=== PATIENT | male | born 1985 ===

== ENCOUNTER 2017-01-05 19:02 | Inpatient (IN) | payer MEDICAID ==
[2017-01-05 20:36] LABS: BASO % 0.3 % (0.0-2.0); EOS # 0.1 K/uL (0.0-0.7); EOS % 1.5 % (0.0-4.0); HEMATOCRIT 40.8 % (35.0-51.0); LYMPH # 2.1 K/uL (1.0-4.3); LYMPH % 28.9 % (20.0-40.0); MEAN CELL VOLUME 86.4 fL (80.0-94.0); MEAN CORPUSCULAR HEMOGLOBIN 28.9 pg (27.0-31.0); MEAN CORPUSCULAR HGB CONC 33.5 g/dL (33.0-37.0); MEAN PLATELET VOLUME 9.3 fL (7.2-11.7); MONO # 0.5 K/uL (0.0-0.8); MONO % 7.4 % (0.0-10.0); RED CELL DISTRIBUTION WIDTH 14.4 % (11.5-14.5); WHITE BLOOD COUNT 7.2 K/uL (4.8-10.8)
[2017-01-05 20:37] LABS: URINE BILIRUBIN NEGATIVE (NEGATIVE); URINE BLOOD NEGATIVE (NEGATIVE); URINE COLOR Yellow (YELLOW); URINE GLUCOSE (UA) NORMAL (Normal); URINE KETONE NEGATIVE (NEGATIVE); URINE LEUKOCYTE ESTERASE NEG Leu/uL (Negative); URINE PROTEIN NEGATIVE (NEGATIVE); WBC URINE 1 /hpf (0-5)
[2017-01-05 20:40] LABS: CHLORIDE 95 mmol/L (98-107)
[2017-01-05 20:41] LABS: POTASSIUM 3.5 mmol/L (3.6-5.2); SODIUM 139 mmol/L (132-148)
[2017-01-05 20:43] LABS: ALB/GLOB RATIO 1.3 (1.0-2.1); ALKALINE PHOSPHATASE 58 U/L (38-126); ALT/SGPT 54 U/L (21-72); AST/SGOT 33 U/L (17-59); BILIRUBIN,TOTAL 0.3 mg/dL (0.2-1.3); BLOOD UREA NITROGEN 8 mg/dL (9-20); CARBON DIOXIDE 28 mmol/L (22-30); GFR AFRICAN-AMERICAN > 60; TOTAL PROTEIN 7.6 g/dL (6.3-8.3)
[2017-01-05 20:44] LABS: ALCOHOL SERUM < 10 mg/dl (0-10); CALCIUM 8.6 mg/dl (8.6-10.4); GLUCOSE,RANDOM 83 mg/dL (75-110)
--- NOTE | 2017-01-05 21:06 | C.PDOC ---
Time Seen by Provider: 01/05/17 20:05 Chief Complaint (Nursing): Psychiatric Evaluation History Per: Patient History/Exam Limitations: clinical condition Onset/Duration Of Symptoms: Days Current Symptoms Are (Timing): Still Present Suicide/Self Injury Attempted (Context): None Severity: Moderate Associated Symptoms: Other (Auditory hallucinations) Additional History Per: Prior Records Past Medical History Reviewed: Historical Data, Nursing Documentation, Vital Signs Vital Signs: Last Vital Signs Temp 98.3 F 01/05/17 19:19 Pulse 82 01/05/17 19:19 Resp 20 01/05/17 19:19 BP 110/75 01/05/17 19:19 Pulse Ox 97 01/05/17 21:06 - Medical History PMH: HIV, Schizophrenia Surgical History: No Surg Hx Family History: States: Unknown Family Hx - Social History Hx Tobacco Use: Yes Hx Alcohol Use: Yes Hx Substance Use: No - Immunization History Hx Tetanus Toxoid Vaccination: No Hx Influenza Vaccination: No Review Of Systems Except As Marked, All Systems Reviewed And Found Negative. Constitutional: Negative for: Fever Cardiovascular: Negative for: Chest Pain Respiratory: Negative for: Shortness of Breath Gastrointestinal: Negative for: Vomiting, Abdominal Pain Musculoskeletal: Negative for: Neck Pain Neurological: Negative for: Weakness, Numbness, Seizures Psych: Positive for: Psychosis Physical Exam - Physical Exam Appears: Non-toxic, No Acute Distress Skin: Normal Color, Warm, Dry Head: Atraumatic Eye(s): bilateral: PERRL, EOMI Neck: Normal ROM, Supple Cardiovascular: Rhythm Regular Respiratory: Normal Breath Sounds, No Accessory Muscle Use Gastrointestinal/Abdominal: Soft, No Tenderness Back: No CVA Tenderness Extremity: Normal ROM, No Deformity Neurological/Psych: Oriented x3, Normal Motor, Normal Sensation ED Course And Treatment - Laboratory Results Result Diagrams: 01/05/17 20:28 01/05/17 20:28 Lab Interpretation: No Acute Changes O2 Sat by Pulse Oximetry: 97 Pulse Ox Interpretation: Normal Progress Note: Pt is medically stable for psychiatric evaluation and/or admission. Disposition Counseled Patient/Family Regarding: Studies Performed, Diagnosis, Smoking Cessation - Disposition Disposition: HOSPITALIZED Disposition Time: 22:04 Condition: STABLE - Clinical Impression Clinical Impression: Schizophrenia Decision To Admit - Pt Status Changed To: Hospital Disposition Of: Inpatient - Admit Certification Admit to Inpatient:: After my assessment, the patient will require hospitalization for at least two midnights. This is because of the severity of symptoms shown, intensity of services needed, and/or the medical risk in this patient being treated as an outpatient. - InPatient: Physician Admission Certification: I certify that this patient requires 2 or more midnights of care for the following reason:: Psych. - . Bed Request Type: Psychiatry Admitting Physician: Josué Patel Patient Diagnosis: Schizophrenia
[2017-01-05 22:52] VITALS: O2SAT 99
--- NOTE | 2017-01-06 11:16 | PCM.PSYCH ---
Initial Psychiatric Evaluation - Initial Psychiatric Evaluation Type of Admission: Voluntary Legal Status: Capacity History of Present Illness and Precipitating Events: Patient is 31 years old male, who is currently homeless and has a history of schizophrenia paranoid type continuous and alcohol and cannabis use disorder. Pt came to the ED because of auditory hallucinations and disorganized behavior. Patient remained disorganized and internally preoccupied throughout the interview. As per the patient he was just discharged from a hospital in [place] and he stopped taking all of his medications and relapsed on alcohol and marihuana. Pt states that yesterday he was not feeling good so thats why he came to the hospital to get help. As per the staff patient remained disorganized and internally preoccupied since yesterday. At times he started pacing back and forth in the hallways but remained partially mute. He reports depressed mood and reports auditory hallucinations telling him to kill himself. He reports VH seeing shadows. Patient appeared paranoid and delusional, and reports at times irritable and agitated mood. pt is not sure about his drinking , however UTOX is negative and pt is not experiencing nay withdrawal s/s. PMH: None reported Current Medications: Active Medications Generic Name Dose Route Start Last Admin Trade Name Freq PRN Reason Stop Dose Admin Acetaminophen 650 mg 01/06/17 11:14 Tylenol 325mg Tab PO Q6 PRN Fever >100.4 F Benztropine Mesylate 2 mg 01/06/17 11:14 Cogentin PO Q6 PRN Extra Pyramidal Symptoms Diphenhydramine HCl 50 mg 01/06/17 11:14 Benadryl PO Q6 PRN Extra Pyramidal Symptoms Haloperidol 5 mg 01/06/17 11:14 Haldol PO Q8 PRN Moderate Agitation Haloperidol Lactate 5 mg 01/06/17 11:14 Haldol IM Q8 PRN Moderate Agitation Hydroxyzine HCl 25 mg 01/06/17 00:42 Atarax PO Q6 PRN Anxiety Nicotine 1 patch 01/06/17 10:45 01/06/17 11:05 Nicoderm Cq TD 1 patch DAILY SANGEETHA Administration Trazodone HCl 50 mg 01/06/17 22:00 Desyrel PO HS SANGEETHA Past Psychiatric History - Past Psychiatric History Previous Treatment History: Inpatient Pertinent Medical Hx (Current Medical&Sleep Prob, Allergies): Allergies Allergy/AdvReac Type Severity Reaction Status Date / Time aspirin Allergy RASH Verified 01/05/17 19:34 No Known Home Med 11/20/15 Review of Systems - Review of Systems All systems: reviewed and no additional remarkable complaints except - Psychiatric Psychiatric: Anxiety, Auditory Hallucinations, Irritability, Paranoia, Suicidal Ideation Mental Status Examination - Personal Presentation Personal Presentation: Looks stated age - Affect Affect: Constricted - Motor Activity Motor Activity: Psychomotor Retardation - Reliability in Providing Information Reliability in Providing Information: Poor, due to alteration in thoughts, Poor , due to altered mood - Speech Speech: Disorganized - Mood Mood: Anxious - Formal Thought Process Formal Thought Process: Hallucinations, Delusions, Paranoia, Loosening of associations, Flight of ideas - Hallucinations/Delusions Hallucinations: Visual, Auditory Delusions: Persecution - Obsessions/Compulsions Obsessions: No Compulsions: No - Cognitive Functions Orientation: Person, Place, Situation, Time Sensorium: Alert Attention/Concentration: Attentive Abstract Thinking: [place] Estimate of Intelligence: Below average Judgement: Imparied, as evidence by: Poor judgement, Imparied, as evidence by: Lack of insight into illness - Risk Risk: Suicidal, Diminished functioning - Limitations Limitations: Living alone DSM 5 DX - DSM 5 DSM 5 Diagnosis: Schizophrenia paranoid type continuous Alcohol use disorder moderate Cannabis use disorder moderate - Recommended/Plan of Treatment Treatment Recommendations and Plan of Treatment: Schizophrenia paranoid type continuous CBT Psychoeducation Supportive therapy, group therapy, individual therapy Haldol 5 mg by mouth twice a day Depakote 250 mg by mouth 2 times a day Trazodone 50 mg by mouth daily at bedtime Alcohol use disorder moderate Ativan 1 mg po q6 hr prn Monitor signs and symptoms Use WI for abstinence Cannabis use disorder moderate Monitor signs and symptoms Use WI for abstinence - Smoking Cessation Smoking Cessation Initiated: No
[2017-01-06] MEDS: Divalproex 250 mg DR Tab PO SCH (17:43)
[2017-01-07] MEDS: Divalproex 250 mg DR Tab PO SCH ×2 (09:51→19:15)
[2017-01-08] MEDS: Divalproex 250 mg DR Tab PO SCH ×2 (10:31→17:44)
--- NOTE | 2017-01-09 01:02 | PCM.PYCHPN ---
Psychiatric Progress Note - Psychiatric Progress Note Patient seen today, length of contact: 16 MIN Patient Chief Complaint: I DON'T LIKE THE WAY I FEEL Problems Identified/Issues Discussed: RELAPSE PREVENTION MED AND TX ADHERENCE Medical Problems: NOTHING ACUTE Diagnostic Results: REVIEWED DSM 5 Symptoms Update: INTERNALLY PREOCCUPIED Medication Change: No Medical Record Reviewed: Yes Mental Status Examination - Cognitive Function Orientation: Place, Situation, Time Memory: Intact Attention: Poor Concentration: Poor Association: WNL Fund of Knowledge: WNL - Mood Mood: Anxious - Affect Affect: Constricted - Speech Speech: Appropriate - Formal Thought Process Formal Thought Process: Hallucinations, Delusions, Paranoia, Loosening of associations, Flight of ideas - Suicidal Ideation Suicidal Ideation: No - Homicidal Ideation Homicidal Ideation: No Goal/Treatment Plan - Goal/Treatment Plan Need for Continued Stay: Remain at risks for inpatient hospitalization, Discharge may exacerbated symptoms Progress Toward Problem(s) and Goals/Treatment Plan: SCHIZOPHRENIA ALCOHOL USE DISORDER ATIVAN PRN CBT MD CANNABIS USE DISORDER MD CBT JONI HOLLOWAY SUPPORTIVE PSYCHOTHERAPY GROUPS MD CBT Estimated Date of D/C: 01/14/17 - Smoking Cessation Smoking Cessation Initiated: No
--- NOTE | 2017-01-09 01:08 | PCM.PYCHPN ---
Psychiatric Progress Note - Psychiatric Progress Note Patient seen today, length of contact: 16 MIN Patient Chief Complaint: I DON'T LIKE THE WAY I FEEL IPT STATES HE FEELS HOPELESS, HELPLESS AND WORTHLESS Problems Identified/Issues Discussed: RELAPSE PREVENTION MED AND TX ADHERENCE PAWS Medical Problems: NOTHING ACUTE Diagnostic Results: REVIEWED Medication Change: No Medical Record Reviewed: Yes Mental Status Examination - Cognitive Function Orientation: Person, Place, Situation, Time Memory: Intact, Impaired Attention: Poor Concentration: Poor Association: WNL Fund of Knowledge: WNL - Mood Mood: Anxious - Affect Affect: Constricted - Speech Speech: Appropriate - Formal Thought Process Formal Thought Process: Hallucinations, Delusions, Paranoia, Loosening of associations, Flight of ideas - Suicidal Ideation Suicidal Ideation: No - Homicidal Ideation Homicidal Ideation: No Goal/Treatment Plan - Goal/Treatment Plan Need for Continued Stay: Remain at risks for inpatient hospitalization, Discharge may exacerbated symptoms Progress Toward Problem(s) and Goals/Treatment Plan: SCHIZOPHRENIA ALCOHOL USE DISORDER ATIVAN PRN CBT [place] CANNABIS USE DISORDER [place] CBT JONI HOLLOWAY SUPPORTIVE PSYCHOTHERAPY GROUPS [place] CBT Estimated Date of D/C: 01/14/17 - Smoking Cessation Smoking Cessation Initiated: No
[2017-01-09] MEDS: Divalproex 250 mg DR Tab PO SCH ×2 (10:35→17:28)
--- NOTE | 2017-01-09 15:41 | PCM.PYCHPN ---
Psychiatric Progress Note - Psychiatric Progress Note Patient seen today, length of contact: 16 MIN Patient Chief Complaint: I'm feeling better Problems Identified/Issues Discussed: Patient seen and evaluated, chart reviewed and discussed with the nurse. Patient appeared more disorganized and less internally preoccupied. Patient reports improvement in his depressed mood but remained isolated and withdrawn, denies any suicidal ideation or homicidal ideation. Supportive therapy and psychoeducation were given. Medication Change: Yes (increase haldol) Medical Record Reviewed: Yes Mental Status Examination - Cognitive Function Orientation: Person, Place, Situation, Time Memory: Intact, Impaired Attention: Poor Concentration: Poor Association: WNL Fund of Knowledge: WNL - Mood Mood: Anxious - Affect Affect: Constricted - Speech Speech: Appropriate - Formal Thought Process Formal Thought Process: Hallucinations, Delusions, Loosening of associations - Suicidal Ideation Suicidal Ideation: No - Homicidal Ideation Homicidal Ideation: No Goal/Treatment Plan - Goal/Treatment Plan Need for Continued Stay: Remain at risks for inpatient hospitalization, Discharge may exacerbated symptoms Progress Toward Problem(s) and Goals/Treatment Plan: Schizophrenia paranoid type continuous CBT Psychoeducation Supportive therapy, group therapy, individual therapy Haldol 5 mg by mouth daily Haldol 10 mg by mouth daily at bedtime Depakote 250 mg by mouth 2 times a day Trazodone 50 mg by mouth daily at bedtime Alcohol use disorder moderate Ativan 1 mg po q6 hr prn Monitor signs and symptoms Use CT for abstinence Cannabis use disorder moderate Monitor signs and symptoms Use CT for abstinence Estimated Date of D/C: 01/14/17 - Smoking Cessation Smoking Cessation Initiated: No
--- NOTE | 2017-01-10 09:46 | PCM.PYCHPN ---
Psychiatric Progress Note - Psychiatric Progress Note Patient seen today, length of contact: 16 MIN Patient Chief Complaint: I'm feeling much better Problems Identified/Issues Discussed: Patient seen and evaluated, chart reviewed and discussed with the nurse. Patient appeared organized, and calm and cooperative. Patient reports improvement in his mood, denies any suicidal ideation or homicidal ideation. He denies any auditory or visual hallucinations. He is taking medications and denied any side effects. Supportive therapy and psychoeducation were given. Medication Change: No Medical Record Reviewed: Yes Mental Status Examination - Cognitive Function Orientation: Person, Place, Situation, Time Memory: Intact, Impaired Attention: WNL Concentration: WNL Association: WNL Fund of Knowledge: Poor - Mood Mood: Anxious - Affect Affect: Constricted - Speech Speech: Appropriate - Formal Thought Process Formal Thought Process: Loosening of associations - Suicidal Ideation Suicidal Ideation: No - Homicidal Ideation Homicidal Ideation: No Goal/Treatment Plan - Goal/Treatment Plan Need for Continued Stay: Remain at risks for inpatient hospitalization, Discharge may exacerbated symptoms Progress Toward Problem(s) and Goals/Treatment Plan: Schizophrenia paranoid type continuous CBT Psychoeducation Supportive therapy, group therapy, individual therapy Haldol 5 mg by mouth daily Haldol 10 mg PO QHS Depakote 250 mg by mouth 2 times a day Trazodone 50 mg by mouth daily at bedtime Alcohol use disorder moderate Ativan 1 mg po q6 hr prn Monitor signs and symptoms Use DC for abstinence Cannabis use disorder moderate Monitor signs and symptoms Use DC for abstinence Estimated Date of D/C: 01/14/17 - Smoking Cessation Smoking Cessation Initiated: No
--- NOTE | 2017-01-10 09:55 | PCM.PYCHDC ---
Mental Status Examination - Mental Status Examination Orientation: Person, Place, Situation, Time Memory: Intact Mood: Euphoric Affect: Constricted Speech: Soft Attention: WNL Concentration: WNL Association: WNL Fund of Knowledge: WNL Formal Thought Process: No Impairment Description of patient's judgement and insight: GOOD, FAIR Psychotic Thoughts and Behaviors: Denies any AVH Suicidal Ideation: No Current Homicidal Ideation?: No Discharge Summary - Discharge Note Reason for Hospitalization: Patient is 31 years old male, who is currently homeless and has a history of schizophrenia paranoid type continuous and alcohol and cannabis use disorder. Pt came to the ED because of auditory hallucinations and disorganized behavior. Patient remained disorganized and internally preoccupied throughout the interview. As per the patient he was just discharged from a hospital in [place] and he stopped taking all of his medications and relapsed on alcohol and marihuana. Pt states that yesterday he was not feeling good so thats why he came to the hospital to get help. As per the staff patient remained disorganized and internally preoccupied since yesterday. At times he started pacing back and forth in the hallways but remained partially mute. He reports depressed mood and reports auditory hallucinations telling him to kill himself. He reports VH seeing shadows. Patient appeared paranoid and delusional, and reports at times irritable and agitated mood. pt is not sure about his drinking , however UTOX is negative and pt is not experiencing nay withdrawal s/s. PMH: None reported Consultations:: List each consultation separately and include: 1. Reason for request. 2. Findings. 3. Follow-up Summary of Hospital Course include:: 1. Description of specific treatment plan utilized for patients during their course of treatmen. 2. Summarize the time- course for resolution of acute symptoms and/or regressed behaviors. 3. Describe issues identified and worked on during hospitalization. 4. Describe medication utilized. 5. Describe medical problems identified and treated. 6. Reassessment of suicide risk Summary of Hospital Course: During the course of his stay, patient (pt) started progressively improving and he no longer remained irritable, depressed, irritable and paranoid. His mood and paranoia were improved and he started attending groups and meetings and started socializing. Patient denied any feelings of hopelessness, helplessness, and worthlessness, denied any problem with the sleep or appetite, denied suicidal ideation or homicidal ideation. Pt denied any auditory or visual hallucinations. Some changes were made in his current medications and patient was discharged on following medications. He tolerated these medications very well and denied any side effects. - Final Diagnosis (DSM 5) Condition upon Discharge: STABLE DSM 5: Schizophrenia paranoid type continuous Alcohol use disorder moderate Cannabis use disorder moderate Disposition: HOME/ ROUTINE Follow-up Treatment Plan: Education: Pt was educated and counseled about the risks and benefits of taking and not taking medications. Pt was educated and counseled about the risks of drinking and abusing drugs. Pt was educated and counseled to go to the ER or call 911 if pt develop suicidal ideation or homicidal ideation, worsening of symptoms or severe side effects of the meds. Prescriptions/Medication Reconciliation: Benztropine [Cogentin] 1 mg PO BID #60 tab Divalproex [Depakote DR] 250 mg PO BID #60 tcp Haloperidol [Haldol] 10 mg PO HS #30 tab Haloperidol [Haldol] 5 mg PO DAILY #30 tab - Smoking Cessation Smoking Cessation Medication prescribed: No - Antipsychotic Medications Pt discharged on 2 or more routine antipsychotic medications: No
[2017-01-10] MEDS: Divalproex 250 mg DR Tab PO SCH (10:44)
[2017-01-10 14:43] VITALS: BP 123/70; PULSE 87; RESP 20; TEMP 98
== END 2017-01-10 12:29 | disposition home or self-care (01) ==
LOC: C.ER 19:02 → C.5E 22:05
PROVIDERS: ADMIT Psychiatry & Neurology Psychiatry; ATTEND Psychiatry & Neurology Psychiatry
PROC: GZ58ZZZ Individual Psychotherapy, Cognitive-Behavioral (ICD-10-PCS; principal; 2017-01-05)
PROC: GZ56ZZZ Individual Psychotherapy, Supportive (ICD-10-PCS; 2017-01-05)
DX: F20.0 Paranoid schizophrenia (principal); F10.10 Alcohol abuse, uncomplicated; F12.90 Cannabis use, unspecified, uncomplicated

== ENCOUNTER 2017-01-13 17:04 | Emergency (ER) | payer MEDICAID ==
[2017-01-13 17:19] VITALS: TEMP 98.7
--- NOTE | 2017-01-13 17:53 | C.PDOC ---
History Of Present Illness 31 year old male presents to the ED with complaints of depression. Patient states he was recently discharged from [facility] however he still feels depressed. He notes he has not filled his prescription from [facility] because he can't find his Medicaid. He has no physical complaints at this time. Time Seen by Provider: 01/13/17 17:29 Chief Complaint (Nursing): Psychiatric Evaluation History Per: Patient History/Exam Limitations: no limitations Onset/Duration Of Symptoms: Days Current Symptoms Are (Timing): Still Present Suicide/Self Injury Attempted (Context): None Associated Symptoms: Depression Past Medical History Reviewed: Historical Data, Nursing Documentation, Vital Signs Vital Signs: Last Vital Signs Temp 98.7 F 01/13/17 17:15 Pulse 80 01/13/17 17:15 Resp 18 01/13/17 17:15 BP 122/78 01/13/17 17:15 Pulse Ox 99 01/13/17 17:56 - Medical History PMH: Depression, HIV, Schizophrenia - [facility] Procedures INDIVIDUAL PSYCHOTHERAPY, COGNITIVE-BEHAVIORAL (01/05/17) INDIVIDUAL PSYCHOTHERAPY, SUPPORTIVE (01/05/17) Family History: States: Unknown Family Hx - Social History Hx Tobacco Use: Yes Hx Alcohol Use: Yes Hx Substance Use: Yes - Immunization History Hx Tetanus Toxoid Vaccination: No Hx Influenza Vaccination: No Review Of Systems Except As Marked, All Systems Reviewed And Found Negative. Constitutional: Negative for: Fever, Chills Cardiovascular: Negative for: Chest Pain Respiratory: Negative for: Shortness of Breath Psych: Positive for: Depression Physical Exam - Physical Exam Appears: Non-toxic, No Acute Distress Skin: Normal Color, Warm, Dry Head: Atraumatic, Normacephalic Oral Mucosa: Moist Chest: Symmetrical Respiratory: No Accessory Muscle Use Extremity: Normal ROM Neurological/Psych: Oriented x3, Normal Speech ED Course And Treatment O2 Sat by Pulse Oximetry: 99 (Room air) Pulse Ox Interpretation: Normal Progress Note: Case discussed with the crisis care administrative tech Sussy. Sussy spoke to Dr. Szymanski who states the patient was recently admitted here and completed treatment then went to [facility] for treatment the same day he was discharged. He reports the patient was discharged from [facility] 4 hours ago after he was medically and psychiatrically cleared. Dr. Szymanski suggests the patient be discharged from the ER. 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 - Scribe Statement The provider has reviewed the documentation as recorded by the Scribe Gato Judd. All medical record entries made by the Scribe were at my direction and personally dictated by me. I have reviewed the chart and agree that the record accurately reflects my personal performance of the history, physical exam, medical decision making, and the department course for this patient. I have also personally directed, reviewed, and agree with the discharge instructions and disposition.
[2017-01-13 18:10] VITALS: BP 136/82; PULSE 84; RESP 16
[2017-01-13 18:46] VITALS: O2SAT 99
== END 2017-01-13 18:10 | disposition home or self-care (01) ==
LOC: C.ER 17:04
DX: F32.89 Other specified depressive episodes (principal); F20.9 Schizophrenia, unspecified